=== PATIENT | female | born 1985 | race African-American/Black ===

== ENCOUNTER 2016-12-31 11:20 | Emergency (ER) | payer MEDICAID ==
[2016-12-31 13:46] LABS: HCG URINE POSITIVE (NEGATIVE)
[2016-12-31 13:55] LABS: APPEARANCE HAZY (CLEAR); BILIRUBIN NEGATIVE (NEGATIVE); COLOR DK YELLOW (YELLOW); GLUCOSE NEGATIVE (NEGATIVE); KETONE MODERATE mg/dL (NEGATIVE); LEUKOCYTE ESTERASE 2+ (NEGATIVE); NITRITE NEGATIVE (NEGATIVE); PROTEIN TRACE mg/dL (NEGATIVE); UROBILINOGEN NORMAL (NORMAL)
[2016-12-31 13:57] LABS: BACTERIA MODERATE /hpf (NONE SEEN); EPITHELIAL CELLS 0-5 /hpf (0-5); MUCUS >1+ /lpf (NONE SEEN); RED CELLS - URINE 0-5 /hpf (0-5)
== END 2016-12-31 14:20 | disposition home or self-care (01) ==
LOC: D.ER 11:20
PROVIDERS: Emergency Medicine
DX: R11.10 Vomiting, unspecified (principal); L02.31 Cutaneous abscess of buttock; R19.7 Diarrhea, unspecified; F17.200 Nicotine dependence, unspecified, uncomplicated